=== PATIENT | female | born 1930 | race Caucasian/White ===

== ENCOUNTER 2016-05-06 21:30 | Emergency (ER) | payer MEDICARE, BC ==
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
[2016-05-07 03:47] VITALS: BP 137/72
== END 2016-05-07 01:16 | disposition home or self-care (01) ==
LOC: ER 21:30
DX: S80.01XA Contusion of right knee, initial encounter (principal); M17.0 Bilateral primary osteoarthritis of knee; W19.XXXA Unspecified fall, initial encounter; Z90.49 Acquired absence of other specified parts of digestive tract